=== PATIENT | female | born 1980 | race Caucasian/White ===

== ENCOUNTER 2017-09-23 00:41 | Emergency (ER) | payer BC ==
[2017-09-23 00:53] VITALS: BP 118/73
[2017-09-23] MEDS ORDERED: Metoclopramide 10 MG/2 ML SDV IVPUSH ONE (01:07)
--- NOTE | 2017-09-23 01:07 | EDM.PDOC ---
ED HPI GENERAL MEDICAL PROBLEM - General Chief Complaint: General Stated Complaint: NAUSEA/PASSED OUT Time Seen by Provider: 09/23/17 01:01 Source of Information: Reports: Patient History Limitations: Reports: No Limitations - History of Present Illness INITIAL COMMENTS - FREE TEXT/NARRATIVE: 37-year-old female reports that she's not felt well all day yesterday. She has intermittent nausea and felt several times that she was going to vomit but never did so. She took Zofran sublingually earlier in the day yesterday with mild improvement. She was able to tolerate a little bit of toast and soup only. She did not develop any diarrhea. She is on second call for the ambulance crew and made a trip to [place]. En route to [place] she started to feel very unwell like she was going to pass out and she had laid on the floor of the ambulance. [facility] To their aid and provide transport of the patient to [place]. She had an IV started in her right antecubital fossa and gave herself 500 mils of normal saline with no improvement. Also took another dose of Zofran 4 mg about 2130 hrs. last night with no improvement. She attends the ED now complaining of significant nausea and dry heaves without any vomiting. Nothing in her stomach although she feels full and like she has bad indigestion. She's had previous cholecystectomy. She's had a Mirena ring in years doesn't believe she could be . She reports over a similar bout of illness last weekend where she felt quite nauseated for a period of time and had to use Zofran. Denies any fever or chills. Blood pressures were quite low when she checked them in the eminence with heart rates in the 80s. No evidence that she was tachycardic. Onset: Gradual Onset Date: 09/22/17 Duration: Hour(s): Location: Reports: Abdomen, Generalized (Generalized nausea.) Quality: Reports: Other (Page like she was going to pass out.) Severity: Severe Improves with: Reports: Rest (Lying down and resting on the floor helped prevent her from passing out) Worsens with: Reports: Other (Standing up), Movement ( but she remained very nauseated.) Context: Denies: Activity, Exercise, Lifting, Sick Contact, Trauma, Other Associated Symptoms: Reports: Loss of Appetite, Malaise, Nausea/Vomiting, Syncope, Weakness. Denies: No Other Symptoms, Confusion, Chest Pain, Cough, cough w sputum, Diaphoresis, Fever/Chills, Headaches, Rash, Seizure, Shortness of Breath (Near syncope.) Treatments PSYCHIATRIC SECRETARY: Reports: Other (see below) Other Treatments PSYCHIATRIC SECRETARY: zofran Headache Pain Score (Numeric/FACES): 3 - Related Data Allergies Allergy/AdvReac Type Severity Reaction Status Date / Time acetaminophen [From Vicodin] Allergy Hives Verified 09/23/17 00:55 hydrocodone bitartrate Allergy Hives Verified 09/23/17 00:55 [From Vicodin] meperidine HCl [From Demerol] Allergy Hives Verified 09/23/17 00:55 morphine Allergy Airway Verified 09/23/17 00:55 Tightness Home Meds: Home Meds Ondansetron [Zofran ODT] 4 mg PO Q6H #10 tab.dis 09/23/17 [Rx] Past Medical History - Past Surgical History GI Surgical History: Reports: Cholecystectomy (At age 16.) Other Musculoskeletal Surgeries/Procedures:: knee surgery Social & Family History - Tobacco Use Smoking Status *Q: Never Smoker Second Hand Smoke Exposure: No - Caffeine Use Caffeine Use: Reports: Coffee, Tea - Recreational Drug Use Recreational Drug Use: No - Living Situation & Occupation Living situation: Reports: Occupation: Employed ED ROS GENERAL - Review of Systems Review Of Systems: See Below Constitutional: Reports: Malaise, Weakness, Fatigue, Decreased Appetite. Denies : Fever, Chills HEENT: Reports: No Symptoms Respiratory: Reports: No Symptoms Cardiovascular: Reports: No Symptoms Endocrine: Reports: Fatigue GI/Abdominal: Reports: Abdominal Pain (Morbid ache discomfort in the epigastrium.), Decreased Appetite, Nausea, Vomiting (Dry heaves tonight.). 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 No oropharyngeal infection) Neck: Normal Inspection, Supple, Non-Tender, Full Range of Motion. No: Lymphadenopathy (L), Lymphadenopathy (R) Respiratory/Chest: No Respiratory Distress, Lungs Clear, Normal Breath Sounds, No Accessory Muscle Use Cardiovascular: Regular Rate, Rhythm, No Edema, No Gallop, No Murmur, No Rub, Tachycardia (Tachycardia at rest 10 5/m) Peripheral Pulses: 2+: Posterior Tibial (L), Posterior Tibial (R), Dorsalis Pedis (L), Dorsalis Pedis (R) GI/Abdominal: Soft, Tender (Mild tenderness in the epigastrium only.), Abnormal Bowel Sounds (Normal bowel sounds), Other (She has had previous left. A cholecystectomy at age 16) Back Exam: Normal Inspection, Full Range of Motion. No: CVA Tenderness (L), CVA Tenderness (R) Extremities: Normal Inspection, Normal Range of Motion, Non-Tender, No Pedal Edema, Normal Capillary Refill Neurological: Alert, Oriented, CN II-XII Intact, Normal Cognition, Normal Gait Psychiatric: Normal Affect, Normal Mood Skin Exam: Warm, Dry, Intact, Normal Color, No Rash Course - Vital Signs Last Recorded V/S: Last Vital Signs Temp 36.4 C 09/23/17 00:49 Pulse 103 H 09/23/17 00:49 Resp 18 09/23/17 00:49 BP 118/73 09/23/17 00:49 Pulse Ox 99 09/23/17 00:49 Orthostatic Blood Pressure [ 109/75 Standing] Orthostatic Blood Pressure [ 125/75 Sitting] Orthostatic Blood Pressure [ 104/61 Supine] - Orders/Labs/Meds Orders: Active Orders 24 hr Category Date Time Status Dextrose 5%-0.9% NaCl [Dextrose 5%-Normal Saline] 1,000 Med 09/23/17 01:15 Active ml IV ASDIRECTED Medication Orders Dextrose/Sodium Chloride (Dextrose 5%-Normal Saline) 1,000 mls @ 999 mls/hr IV ASDIRECTED JUAN MANUEL Last Admin: 09/23/17 01:15 Dose: 999 mls/hr Labs: Laboratory Tests 09/23/17 09/23/17 09/23/17 Range/Units 01:17 01:17 01:17 WBC 7.60 (3.98-10.04) K/mm3 RBC 4.23 (3.98-5.22) M/mm3 Hgb 13.3 (11.2-15.7) gm/L Hct 39.7 (34.1-44.9) % MCV 93.9 (79.4-94.8) fl MCH 31.4 (25.6-32.2) pg MCHC 33.5 (32.2-35.5) g/dl RDW Std Deviation 41.8 (36.4-46.3) fL Plt Count 167 L (182-369) K/mm3 MPV 9.8 (9.4-12.3) fl Neutrophils % (Manual) 79 H (40-60) % Band Neutrophils % 1 (0-10) % Lymphocytes % (Manual) 19 L (20-40) % Atypical Lymphs % 0 % Monocytes % (Manual) 1 L (2-10) % Eosinophils % (Manual) 0 L (0.7-5.8) % Basophils % (Manual) 0 L (0.1-1.2) Platelet Estimate Adequate RBC Morph Comment Normal Sodium 139 (136-145) mEq/L Potassium 4.2 (3.5-5.1) mEq/L Chloride 104 (98-107) mEq/L Carbon Dioxide 25 (21-32) mEq/L Anion Gap 14.2 (5-15) BUN 12 (7-18) mg/dL Creatinine 0.7 (0.55-1.02) mg/dL Est Cr Clr Drug Dosing 116.11 mL/min Estimated GFR (MDRD) > 60 (>60) mL/min BUN/Creatinine Ratio 17.1 (14-18) Glucose 116 H (74-106) mg/dL Calcium 9.0 (8.5-10.1) mg/dL Total Bilirubin 0.7 (0.2-1.0) mg/dL AST 19 (15-37) U/L ALT 32 (14-59) U/L Alkaline Phosphatase 56 (46-116) U/L Total Protein 7.0 (6.4-8.2) g/dl Albumin 3.8 (3.4-5.0) g/dl Globulin 3.2 gm/dL Albumin/Globulin Ratio 1.2 (1-2) Lipase 154 (73-393) U/L HCG, Qual Negative (NEGATIVE) Meds: Medications Generic Name Dose Route Start Last Admin Trade Name Vu PRN Reason Stop Dose Admin Dextrose/Sodium Chloride 1,000 mls @ 999 mls/hr 09/23/17 01:15 09/23/17 01:15 Dextrose 5%-Normal Saline IV 999 mls/hr ASDIRECTED JUAN MANUEL Administration Discontinued Medications Generic Name Dose Route Start Last Admin Trade Name Freq PRN Reason Stop Dose Admin Al Hydroxide/Mg Hydroxide 30 ml 09/23/17 02:03 Mag-Al Plus PO 09/23/17 02:04 ONETIME ONE Metoclopramide HCl 10 mg 09/23/17 01:07 09/23/17 01:15 Reglan IVPUSH 09/23/17 01:08 10 mg ONETIME ONE Administration - Radiology Interpretation Free Text/Narrative:: 37-year-old female presents to the ED due to developing 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 Patient has not felt well all day yesterday with mild nausea. She ate very little during the day. She did use Zofran sublingually once yesterday. She is on second call and called to provide transport of the patient to [facility]. She reports en route to [place] she developed blackening of vision and was likely going to faint. She therefore laid down on the floor of the ambulance. Associated marked increased in nausea at that time suggesting vasovagal effect. She took a repeat Zofran 4 mg sublingually about 2130 hrs. last night. They had called [facility] ambulance from [facility] with them due to her illness. When she got back to [facility] she had an IV started and gave herself 500 mils of normal saline without any improvement in nausea or status. She remains orthostatic care with a heart rate of 75 lying and up to 114 when she stands. Blood pressure didn't change that much. She checked her heart rate when she was in the emergency room was in the 80s. At this time she remains quite nauseated. The stomach flu or viral gastroenteritis is quite prevalent in the community this time. She gives a history of similar type illness last weekend. Therefore I'm going to have labs done including an ECG. IV will be D5 normal saline at open. Reglan 10 mg we'll give be given intravenously for nausea relief. - Re-Assessments/Exams Free Text/Narrative Re-Assessment/Exam: 09/23/17 02:05 complaints of heartburn. Will give Maalox 30 mils by mouth. Nausea is improved after the Reglan 10 mg IV. 09/23/17 02:18 White count is normal at 7.60 with 79% neutrophils and 1% band cells reported. Hemoglobin is 13.3 with hematocrit of 39.7. Platelet count 167, 000. Sodium was 139. Potassium 4.2. Chloride 104. Bicarbonate 25. Anion gap is normal at 14.2. B1 is 12 creatinine is 0.7. Glucose is 116. HCG is negative. Liver function is normal. Lipase is normal at 154. 09/23/17 02:21 has completed liter of IV fluids. Will check orthostatic blood pressures and heart rate. Going to send her home with a Reglan 10 mg tablet to be taken at 6:00 this morning to see if we can prevent and control nausea. After this she will use Zofran 4 mg sublingually with which I wrote a prescription for through the [employer] [facility] for 10 tablets. Diagnosis is viral gastritis. Departure - Departure Time of Disposition: 02:23 Disposition: Home, Self-Care 01 Condition: Fair Clinical Impression: Viral gastritis, Vasovagal near syncope - Discharge Information Prescriptions: Ondansetron [Zofran ODT] 4 mg PO Q6H #10 tab.dis Referrals: PCP,None [Primary Care Provider] - Forms: ED Department Discharge Additional Instructions: Evaluation in the emergency room tonight in regards to near syncopal event that occurred while at work last evening. Associated nausea and stomach flu symptoms for the last 24 hours. You're identity by identified to be orthostatic with heart rate going from 75-121 used it up from the seated position. The pressure did not change aggressively. However history suggests you develop vasovagal near syncope while at work last evening and prevented fainting by laying down on the floor. You're treated in the emergency room with a liter of IV fluids to replace volume. Reglan 10 mg was given IV for nausea relief. I will send him home with Reglan tablets that I want you awaken and take about 6:00 this morning to provide another 6 hours relief of nausea. After this may use Zofran 4 mg under the tongue every 4 hours as necessary for nausea relief. Time is stomach flu has been lasting about 24 hours. Suggest clear fluids in the morning such as Gatorade or Powerade 3-4 ounces every hour once you are hungry made try soda crackers and dry toast. Then advance to soup such as turkey rice turkey noodle etc. Avoid all dairy products and no apple juice or grape juice until you know for sure you're not going to develop diarrhea over the next 12- 24 hours. Of note all of the labs done in the ED tonight were normal with no signs of pancreatitis or liver involvement in your illness. Normal WBC, again suggestive of viral illness. - My Orders Last 24 Hours: My Active Orders 09/23/17 01:15 Dextrose 5%-0.9% NaCl [Dextrose 5%-Normal Saline] 1,000 ml IV ASDIRECTED - Assessment/Plan Last 24 Hours: My Active Orders 09/23/17 01:15 Dextrose 5%-0.9% NaCl [Dextrose 5%-Normal Saline] 1,000 ml IV ASDIRECTED
[2017-09-23] MEDS ORDERED: Dextrose 5%-0.9% NaCl 1,000 ML IV SCH (01:15)
[2017-09-23] MEDS ORDERED: Aluminum Hydroxide/Magnesium Hydroxide/Simethicone Susp 30 ML Cup PO ONE (02:03)
[2017-09-23] MEDS ORDERED: Metoclopramide 10 MG Tab PO ONE (02:24)
== END 2017-09-23 02:44 | disposition home or self-care (01) ==
LOC: JD.ED 00:41
DX: A08.4 Viral intestinal infection, unspecified (principal); R55 Syncope and collapse; Z88.8 Allergy status to other drugs, medicaments and biological substances; Z88.5 Allergy status to narcotic agent
CPT/HCPCS: 36415; 80053; 83690; 84703; 85025; 96361; 96374; 99284; A9270; J2765; J7042